=== PATIENT | male | born 1970 | race Caucasian/White ===

== ENCOUNTER 2025-05-23 06:54 | Day surgery (SDC) | payer OTHER ==
[2025-05-18 11:13] VITALS: BMI 32.1
[2025-05-23] MEDS ORDERED: AFRIN NASAL MIST 15 ML BOT ONE (07:27)
[2025-05-23] MEDS ORDERED: Oxymetazoline HCl 0.05% (15 ML) ONE (07:30)
[2025-05-23] MEDS ORDERED: PROPOFOL 40 ML ONE (07:39)
[2025-05-23] MEDS ORDERED: Ondansetron PF 4 MG/2 ML Vial ONE (08:29)
[2025-05-23] MEDS ORDERED: Lidocaine 1% PF 5 ML VIAL ONE (08:29)
[2025-05-23] MEDS ORDERED: Lidocaine 1% w/Epinephrine 1:200K 30 ML VIAL ONE (08:32)
[2025-05-23] MEDS ORDERED: Bacitracin 1 PK ONE (08:32)
== END 2025-05-23 11:55 | disposition home or self-care (01) ==
LOC: CSHSDC 06:54
PROVIDERS: ATTEND Otolaryngology Plastic Surgery within the Head & Neck
PROC: 09TL8ZZ Resection of Nasal Turbinate, Via Natural or Artificial Opening Endoscopic (ICD-10-PCS; principal; 2025-05-23)
PROC: 09SM4ZZ Reposition Nasal Septum, Percutaneous Endoscopic Approach (ICD-10-PCS; principal; 2025-05-23)
DX: J34.2 Deviated nasal septum (principal); J34.3 Hypertrophy of nasal turbinates; J32.0 Chronic maxillary sinusitis; G47.33 Obstructive sleep apnea (adult) (pediatric); Z98.890 Other specified postprocedural states
CPT/HCPCS: J1100; J2405; J2704; J3010